=== PATIENT | male | born 1985 | race Caucasian/White ===

== ENCOUNTER 2024-10-08 21:48 | Emergency (ER) | payer MEDICAID, SELFPAY ==
[2024-10-08 22:36] VITALS: BP 104/66; PULSE 87; RESP 18; TEMP 36.8; O2SAT 98
[2024-10-08 22:36] LABS: Basophils % 0.2 %; Eosinophils # 0.2 10^3/uL (0.0-0.8); Eosinophils % 2.1 %; Hematocrit 42.2 % (37-53); Lymphocytes # 1.5 10^3/uL (0.8-4.8); Lymphocytes % 17.7 %; Mean Corpuscular HGB Conc 32.7 g/dL (30-55); Mean Corpuscular Hemoglobin 29.4 pg (27-33); Mean Platelet Volume 10.5 fL (7.4-10.4); Monocytes # 0.7 10^3/uL (0.2-0.9); Monocytes % 8.3 %; Neutrophils # 5.77 10^3/uL (1.8-7.7); Neutrophils % 70.6 %; Nucleated Red Blood Cells % 0 %; Platelet Count 245 10^3/cmm (157-399); Red Blood Count 4.69 10^6/uL (3.85-5.65); Red Cell Distribution Width 13.1 % (12.1-15.1); White Blood Count 8.18 10^3/uL (3.29-11.43)
--- NOTE | 2024-10-08 22:56 | CTR_ITS ---
PROCEDURE INFORMATION: Exam: CT Head Without Contrast Exam date and time: 10/08/2024 11:11 PM Age: 39 years old Clinical indication: Weakness, extremity; Left; Additional info: Falls, unk head injury, left leg numb TECHNIQUE: Imaging protocol: Computed tomography of the head without contrast. Radiation optimization: All CT scans at this facility use at least one of these dose optimization techniques: automated exposure control; mA and/or kV adjustment per patient size (includes targeted exams where dose is matched to clinical indication); or iterative reconstruction. COMPARISON: No relevant prior studies available. RADIATION DOSE METRICS: Total DLP (mGy-cm): 1310.38 FINDINGS: Brain: Normal. No hemorrhage. Unremarkable white matter. No mass effect. Cerebral ventricles: No ventriculomegaly. Paranasal sinuses: Patchy consolidation paranasal sinuses most particularly left frontal sinus. Mastoid air cells: Visualized mastoid air cells are well aerated. Bones: Unremarkable. No acute fracture. Soft tissues: Unremarkable. CT/CT head wo con* [id number] IMPRESSION: Inflammatory change paranasal sinuses without acute traumatic injury seen. No acute infarction appreciated.
--- NOTE | 2024-10-08 22:57 | ED_ITS ---
HPI - General Adult 2 General: Chief complaint: General Medical Stated complaint: fall, high bs Time Seen by Provider: 10/08/24 22:46 Source: RN notes reviewed Mode of arrival: EMS Limitations: physical limitation History of Present Illness: Patient is a 39-year-old male who presents emergency department by ambulance for a couple of falls today. Patient was sent by [facility] due to 2 falls today, first 1 was unwitnessed and the second 1 was witnessed. Reportedly fell on his back the first time, then fell onto his stomach the second. They also noted that his blood pressure was running low. Patient does not provide any useful history, he has extensive psychiatric history and is schizophrenic. He tells me during exam that he just wants his left lower extremity cut off because it is numb and he cannot feel it. Also was stating that his heart hurts. Stating he is having some low back pain from the fall, otherwise no symptoms though review of systems ultimately unobtainable secondary to his physical imitations. MD complaint: Falls, hypertension Review of Systems 2 General: Reports: ROS unobtainable due to medical condition Physical Exam 2 Const: EXAM LIMITATIONS: physical limitations GENERAL APPEARANCE: d isheveled and lethargic NUTRITIONAL APPEARANCE: obese morbidly obese O RIENTATION/CONSCIOUSNESS: Yes awake and Yes lethargic HENMT: COMMON NORMALS: normocephalic and atraumatic HEAD & SCALP: n ormocephalic and atraumatic OTHER: Dry oral mucosa, poor dentition Eye: COMMON NORMALS: Equal, round and reactive pupils present (Sluggish) and EOMs intact bilaterally PUPIL: Yes Equal, round and reactive pupils present (Sluggish) Neck/C-Spine: COMMON NORMALS: full ROM, no meningeal signs and no JVD Chest: COMMONS NORMALS: normal inspection of the chest and normal palpation of entire chest wall Resp: COMMON NORMALS: normal respiratory effort, No retractions, No use of accessory muscles and clear to auscultation bilaterally AUSCULTATION: clear to auscultation bilaterally Cardio: COMMON NORMALS: no JVD, regular rate, regular rhythm, S1 normal heart sound present and S2 normal heart sound present RATE: regular rate RHYTHM: regular rhythm HEART SOUNDS: S1 normal heart sound present and S2 normal heart sound present GI: COMMON NORMALS: Soft to palpation and non-tender INSPECTION: Yes central obesity PALPATION: Yes Soft to palpation Extremity: COMMON NORMALS: full ROM, capillary refill normal, no joint enlargement and no clubbing, cyanosis or edema NARRATIVE EXTREMITY EXAM: Nonpitting peripheral edema bilaterally Neuro: COMMON NORMALS: deep tendon reflexes 2+ bilaterally S ENSORIUM/ORIENTATION: Yes lethargic MENINGEAL SIGNS: Yes no meningeal signs OTHER: Indicating diminished sensation to light touch to left lower extremity. Also refuses movement of the left lower extremity though I suspect this is secondary to mental capacity as opposed to neurological deficit Skin: COMMON NORMALS: no rashes or lesions noted GENERAL SKIN EXAM: no rashes or lesions noted Course 2 Vital Signs: Vital signs: Vital Signs Temperature 98.3 F 10/08/24 22:36 Pulse Rate 83 10/09/24 00:15 Respiratory Rate 15 10/08/24 23:52 Blood Pressure 132/82 10/09/24 00:15 Pulse Oximetry 98 10/08/24 23:52 Oxygen Delivery Me thod Room Air 10/08/24 23:52 MDM - General Adult Medical Decision Making Patient was [facility] was reportedly hypotensive there. Initially on arrival here was 104/66 but blood pressure has improved into the 130s systolic. Orthostatic vital signs were negative. Lab work was all completely normal. Negative urinalysis and negative viral swab. Head CT did not demonstrate any acute abnormalities and chest x-ray did not show any acute abnormalities. EKG reviewed did not show any issues here. Patient does have extensive history of psychiatric illness and mental history, ultimately was unreliable historian. I did attempt to contact staff at the [facility] but was unable to get a hold of them throughout the course of patient's ED stay. With no abnormalities on labs, vitals, or imaging can ultimately be discharged back to [facility] for further care and monitoring. Lab Data 10/08/24 22:29 10/08/24 22:[address] 10/08/24 22:56 IMPRESSION: Inflammatory change paranasal sinuses without acute traumatic injury seen. No acute infarction appreciated. Chest X-Ray 10/08/24 22:57 IMPRESSION: Cardiomegaly. No additional acute finding. Laboratory Results WBC 8.18 10^3/uL (3.29-11.43) 10/08/24 22:29 RBC 4.69 10^6/uL (3.85-5.65) 10/08/24 22: Hgb 13.80 g/dL (11.27-16.99) 10/08/24: Hct 42.2 % (37-53) 10/08/24: MCV 90.0 fl (82-101) 10/08/24: MCH 29.4 pg (27-33) 10/08/24: MCHC 32.7 g/dL (30-55) 10/08/24: RDW 13.1 % (12.1-15.1) 10/08/24: Plt Count 245 10^3/cmm (157-399) 10/08/24: MPV 10.5 fL (7.4-10.4) H 10/08/24: Neut % (Auto) 70.6 % 10/08/24: Lymph % (Auto) 17.7 % 10/08/24: [place] % (Auto) 8.3 % 10/08/24: Eos % (Auto) 2.1 % 10/08/24: Baso % (Auto) 0.2 % 10/08/24: Neut # (Auto) 5.77 10^3/uL (1.8-7.7) 10/08/24: Lymph # (Auto) 1.5 10^3/uL (0.8-4.8) 10/08/24: [place] # (Auto) 0.7 10^3/uL (0.2-0.9) 10/08/24: Eos # (Auto) 0.2 10^3/uL (0.0-0.8) 10/08/24: Baso # (Auto) 0.0 10^3/uL (0.0-0.1) 10/08/24: Nucleated RBC % (auto) 0 % 10/08/24 Nucleated RBCs # 0.0 /100WBC 10/08/24: Sodium 139 mmol/L (136-145) 10/08/24: Potassium 3.7 mmol/L (3.5-5.1) 10/08/24: Chloride 107 mmol/L (98-107) 10/08/24 22:29 Carbon Dioxide 18 mmol/L (22-29) L 10/08/24 22:29 Anion Gap 17.7 (5-19) 10/08/24 22:29 BUN 10 mg/dL (6-20) 10/08/24 22:29 Creatinine 0.7 mg/dL (0.7-1.2) 10/08/24 22:29 GFR Calculation 126.9 mL/min (90-130) 10/08/24 22: Glucose 148 mg/dL (65-115) H 10/08/24 22: Calculated Osmolality 290 mOsm/kg (285-295) 10/08/24 22: Calcium 9.2 mg/dL (8.5-10.5) 10/08/24 22: Total Bilirubin 0.2 mg/dL (0.15-1.2) 10/08/24 22:29 AST 11 U/L (0-40) 10/08/24 22:29 ALT 21 U/L (0-41) 10/08/24 22:29 Alkaline Phosphatase 80 U/L (40-130) 10/08/24 22:29 Troponin T Baseline 9 ng/L (0-15) 10/08/24 22:29 Total Protein 6.9 g/dL (6.6-8.7) 10/08/24 22:29 Albumin 4.1 g/dL (3.5-5.2) 10/08/24 22: Globulin 2.8 g/dL (1.3-4.6) 10/08/24 22: Lipase 28 U/L (13-60) 10/08/24 22:29 Urine Color Yellow (Yellow) 10/09/24 00:14 Urine Appearance Clear (CLEAR) 10/09/24 00:14 Urine pH 6.5 (5-7) 10/09/24 00:14 Ur Specific [place] 1.020 (1.005-1.030) 10/09/24 00:14 Urine Protein Negative (Negative) 10/09/24 00:14 Urine Glucose (UA) Negative (Normal) 10/09/24 00:14 Urine Ketones Negative (Negative) 10/09/24 00:14 Urine Blood Negative (Negative) 10/09/24 00:14 Urine Nitrate Negative (Negative) 10/09/24 00:14 Urine Bilirubin Negative (Negative) 10/09/24 00:14 Urine Urobilinogen 0.2 mg/dL (Negative) 10/09/24 00:14 Ur Leukocyte Esterase Negative (Negative) 10/09/24 00:14 Amorphous Sediment Not Reportable 10/09/24 00:14 Influenza A (PCR) Negative (Negative) 10/08/24 23:37 Influenza Type B (PCR) Negative (Negative) 10/08/24 23:37 RSV (PCR) Negative (Negative) 10/08/24 23:37 SARS-CoV-2 (PCR) Negative (Negative) 10/08/24 23:37 All radiology interpretation(s) finalized by discharge EKG Data EKG 1: I personally reviewed and interpreted this EKG as follows: EKG interpretation date: 10/09/24 EKG interpretation time: 00:25 Prior EKG tracings: not available for review Interpretation: 0025: Normal sinus rhythm. Normal axis. Normal intervals. No STEMI. No previous for comparison. Computer generated interpretation: Head CT 10/08/24 22:56 IMPRESSION: Inflammatory change paranasal sinuses without acute traumatic injury seen. No acute infarction appreciated. Chest X-Ray 10/08/24 22:57 IMPRESSION: Cardiomegaly. No additional acute finding. Discharge Plan Discharge Patient Disposition: Home Clinical Impression: Fall Qualifiers: Encounter type: initial encounter Qualified Code(s): W19.XXXA - Unspecified fall, initial encounter Low back strain Qualifiers: Encounter type: initial encounter Qualified Code(s): S39.012A - Strain of muscle, fascia and tendon of lower back, initial encounter Condition: Stable Discharge Orders: Discharge ED (Routine); Ordered 10/09/24 Ordered By: Konstantin Leon Referrals: Jermaine Gerardo [Primary Care Provider] - Patient Instructions: Fall Prevention (ED) Activity Restrictions/Additional Instructions: Continue monitoring blood pressures at home. Continue home medications. Ibuprofen/Tylenol for aches and pains. Return with any new or worsening. Print Language: French Coding Level of Care Code ED Jalousies Installer for Romana Chapman
--- NOTE | 2024-10-08 22:57 | ECG_ITS ---
[facility] Date: 2024-[facility]09 Pat Name: Shahid Atwood Department: Room: Gender: Male Md Psychiatry: : 1985 Requested By: Konstantin Duong Order Number: [id number] Cornelio MD: Aris Burns M.D. Measurements Intervals Fine Rate: 82 P: 52 [place]: 156 QRS: 10 QRSD: 96 T: 30 QT: 368 QTc: 432 Interpretive Statements SINUS RHYTHM LOW QRS VOLTAGE IN PRECORDIAL LEADS [QRS DEFLECTION < 1.0 mV IN CHEST LEADS] No previous ECG available for comparison Electronically Signed On 10-13-2024 18:13:34 MELT HOUSE DRAG OPERATOR by Aris Burns M.D. [email or web address]
--- NOTE | 2024-10-08 22:57 | XRR_ITS ---
PROCEDURE INFORMATION: Exam: XR Chest Exam date and time: 10/08/2024 10:59 PM Age: 39 years old Clinical indication: Other: Weakness; Additional info: Weak, falls TECHNIQUE: Imaging protocol: Radiologic exam of the chest. Views: 1 view. COMPARISON: No relevant prior studies available. FINDINGS: Lungs: Unremarkable. No consolidation. Pleural spaces: Unremarkable. No pleural effusion. No pneumothorax. Heart/Mediastinum: Cardiomegaly. Bones/joints: Unremarkable. XR/XR chest 1V portable [id number] IMPRESSION: Cardiomegaly. No additional acute finding.
[2024-10-08 22:58] LABS: Alanine Aminotransferase 21 U/L (0-41); Albumin Level 4.1 g/dL (3.5-5.2); Alkaline Phosphatase 80 U/L (40-130); Anion Gap 17.7 (5-19); Aspartate Amino Transferase 11 U/L (0-40); Blood Urea Nitrogen 10 mg/dL (6-20); Calcium 9.2 mg/dL (8.5-10.5); Carbon Dioxide 18 mmol/L (22-29); Chloride 107 mmol/L (98-107); Globulin 2.8 g/dL (1.3-4.6); Glomerular Filtration Rate 126.9 mL/min (90-130); Glucose 148 mg/dL (65-115); Lipase 28 U/L (13-60); Osmolality Calculated 290 mOsm/kg (285-295); Potassium 3.7 mmol/L (3.5-5.1); Sodium 139 mmol/L (136-145); Total Bilirubin 0.2 mg/dL (0.15-1.2); Total Protein 6.9 g/dL (6.6-8.7)
[2024-10-08 23:14] LABS: Troponin(5th) Baseline 9 ng/L (0-15)
[2024-10-08 23:52] VITALS: BP 130/71; PULSE 80; RESP 15; O2SAT 98
[2024-10-08] MEDS: sodium chloride 0.9% 1,000 ML 999 ML IV (23:55)
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
[2024-10-09 00:15] VITALS: BP 132/82; BP 135/98; PULSE 83; PULSE 95
[2024-10-09 00:20] LABS: Influenza A NEGATIVE (Negative); Influenza B NEGATIVE (Negative); Respiratory Syncytial Virus Ce NEGATIVE (Negative); SARS-CoV-2 PCR NEGATIVE (Negative)
[2024-10-09 00:26] LABS: Add Urine Microscopic? NO
[2024-10-09 00:29] LABS: Bilirubin Urine Negative (Negative); Blood Urine Negative (Negative); Glucose Urine UA Negative (Normal); Ketones Urine Negative (Negative); Leukocyte Esterase Urine Negative (Negative); Nitrate Urine Negative (Negative); Protein Urine Negative (Negative); Urine Appearance Clear (CLEAR); Urine Color Yellow (Yellow); Urobilinogen Urine 0.2 mg/dL (Negative); pH Urine 6.5 (5-7)
[2024-10-09 00:49] LABS: Charge for UA Resulting for Rev
--- NOTE | 2024-10-09 00:50 | ECG_ITS ---
[facility] Test Date: 2024-10-09 Pat Name: Shahid Atwood Department: Room: Gender: Male Senior Hris Analyst: : 1985 Requested By: Konstantin Duong Order Number: [id number] Cornelio MD: Aris Burns M.D. Measurements Intervals [place] Rate: 92 P: 64 [place]: 145 QRS: 18 QRSD: 92 T: 53 QT: 359 QTc: 445 Interpretive Statements SINUS RHYTHM LOW QRS VOLTAGE IN PRECORDIAL LEADS [QRS DEFLECTION < 1.0 mV IN CHEST LEADS] Compared to ECG 10/09/2024 00:23:04 No significant changes Electronically Signed On 10-13-2024 19:47:18 ARTIST CONSULTANT by Aris Bruns M.D. [id number] [id number]
[2024-10-09 02:30] VITALS: BP 129/73; PULSE 87; RESP 18; O2SAT 92
== END 2024-10-09 02:32 | disposition home or self-care (01) ==
PROVIDERS: Emergency Medicine; Emergency Provider Physician Assistant; PCP Student in an Organized Health Care Education/Training Program
DX: S39.012A Strain of muscle, fascia and tendon of lower back, initial encounter (principal); W19.XXXA Unspecified fall, initial encounter; Z11.52 Encounter for screening for COVID-19
CPT/HCPCS: 36415; 70450; 71045; 72020; 73502; 80053; 81003; 83690; 84484; 85025; 87637; 93005; 96360; 96361; 99285; J7030

== ENCOUNTER 2025-06-27 13:23 | Emergency (ER) | payer MEDICAID, SELFPAY ==
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
--- OUTSIDE RECORDS SUMMARY | 2024-02-08 04:30 | XMS_ITS ---
Author Organization [facility] Address [address] [place] [address] Care Team Providers Care Diet Assistant Name Role Phone DR. Ramón Capellan Unavailable [phone] REASON FOR VISIT 1 month f/u Medications Medication SIG (Take, Route, Frequency, Duration) Notes Start Date End Date Status Albuterol Sulfate HFA 108 (9 0 Base) MCG/ACT Aerosol Solution 1 puff as needed Inhalation every 4 hrs Active Loperamide HCl 2 MG Tablet 1 tablet as n eeded Orally every 8 hrs 01/23/2024 Active Acetaminophen 500 MG Capsule 2 tablets Orally every 6 hrs As needed 01/23/2024 Active Gabapentin 100 MG Capsule 1 capsule Oral ly three times daily 01/23/2024 Active Primidone 250 MG Tablet 1 tablet Orally Three times a day 01/23/2024 Active Topiramate 100 MG Tablet 1 tablet Orally three times daily 01/23/2024 Active Prazosin HCl 2 MG Capsule 1 capsule at b edtime Orally Once a day Active amLODIPine Besylate 10 MG Tablet 1 tablet Orally Once a day Active cloZAPine 100 MG Tablet 3 tablets Orally at bedtime 01/23/2024 Active Propranolol HCl 20 MG Tablet 1 tablet Orally daily 01/23/2024 Active Uzedy 125 MG/0.35ML Suspension Prefilled Syringe 0.35 mL Subcutaneous Active cloNIDine HCl 0.1 MG Tablet 1 tablet Ora lly three times a day Active Vitamin D3 125 MCG (5000 UT) Capsule 1 capsule Orally Once a day Active Keppra 500 MG Tablet 1 tablet Orally samantha ry 12 hrs Active clonazePAM 1 MG Tablet 1 tablet Orally t hree times daily 01/23/2024 Active medroxyPROGESTERone Acetate 150 MG/ML Suspension 1 mL Intramuscular one time every 3 months Active Levothyroxine Sodium 75 MCG Tablet 1 tablet in the morning on an empty stomach Orally Once a day Active Omeprazole 20 MG Capsule Delayed Release 1 capsule 30 minutes before morning meal Orally Once a day Active Vital Signs Temperature 97.9 degrees Fahrenheit 02/08/20 24 Blood pressure systolic 142 mm Hg 02/08/20 24 Blood pressure diastolic 91 mm Hg 024 Heart Rate 67 /min 02/08/2024 Respiratory Rate 21 /min 02/08/2024 Height 68 in 02/08/2024 Weight 347.6 lbs 02/08/2024 BMI 52.85 kg/m2 02/08/2024 Oximetry 98 % 02/08/2024 Height-cm 172.72 cm 02/08/2024 Weight-kg 157.67 kg 02/08/2024 Encounters Encounter Location Date Provider Diagnosis [facility] DO NOT USE! [address] [place], [place] [id number] 02/08/2024 Ramón Capellan Hypothyroidism, unspecified E03.9 ; GERD without esophagitis K21.9 ; Morbid obesity E66.01 and Bipolar 1 disorder F31.9 Assessments Encounter Date Diagnosis (ICD Code) Assessment Notes Treatment Notes Treatment Clinical Notes Section Notes 02/08/2024 Hypothyroidism, unspecified (ICD-10 - E03.9) 02/08/2024 GERD without esophagitis (ICD-10 - K21.9) Encouraged patient to limit/avoid spicy foods, caffeine and alcohol. Discussed avoid eating 4 hours prior to bed, sleep with head of bed elevated. Discussed over the counter medications antacids, anti histamine and proton pump inhibitors. 02/08/2024 Morbid obesity (ICD-10 - E66.01) 02/08/2024 Bipolar 1 disorder (ICD-10 - F31.9) Plan Of Treatment Treatment Notes Assessment Notes GERD without esophagitis Encouraged ayad ent to limit/avoid spicy foods, caffeine and alcohol. Discussed avoid eating 4 hours prior to bed, sleep with head of bed elevated. Discussed over the counter medications antacids, anti histamine and proton pump inhibitors. Next Appt Details Follow Up: 4 Weeks, Reason: History and Physical Notes * HPI (History of Present Illness) Category Sub-Category Detail Notes Category Not es History of Present Illness 38 year old male resident is evaluated for a follow up visit. He is in his room and in no acute distress. He is compliant with medication regimen. He has no new medical concerns today. He has cognitive impairment. Examination Category Sub-Category Detail Notes Category Not es Physical Exam SPC General: no acute distress. Morb id obesity. Ear, Nose, and Throat: No erythema poste rior Pharynx, tympanic membrane normal Neck/Thyroid: neck supple, no thyr oid enlargement noticed Cardiac: regular, rate and rh ythm, S1/S2 Lung: clear to auscultatio n bilaterally Abdomen: soft, non tender, no n distended, bowel sound present X4Q Musculoskeletal unsteady gait. muscl e weakness. Extremities: pulse +2. decreased range of motion in limbs. Neurologic: cognitive impairment . Skin: Progress Notes * ROLANDA STARKEYWDOB: 8 (39 yo M)Acc No.[id number]:02/08/2024 Progress Note Patient: GENE MCKAY Provider: Justina Capellan MD :1985 A ge:38 Y S ex:Male Date:02/08/2024 Phone: Address:[address] [facility] [id number] Subjective: * Chief Complaints: * 1 month f/u * HPI: H istory of Present Illness: 38 year old male resident is evaluated for a follow up visit. He is in his room and in no acute distress. He is compliant with medication regimen. He has no new medical concerns today. He has cognitive impairment. * ROS: G eneral: - A lert and oriented to self. Ambulatory by self with an unsteady gait. morbid obesity. cognitive impairment. . G astrointestinal: Patient complains of G ERD. M usculoskeletal: Patient complains of j oint stiffness, muscle aches. ? P sychiatric: Patient complains of a nxiety, depressed mood. ? * Medications: T akingmedroxyPROGESTERone Acetate 150 MG/ML Suspension 1 mL Intramuscular one time every 3 months Uzedy 125 MG/0.35ML Suspension Prefilled Syringe 0.35 mL Subcutaneous cloNIDine HCl 0.1 MG Tablet 1 tablet Orally three times a day Vitamin D3 125 MCG (5000 UT) Capsule 1 capsule Orally Once a day Keppra 500 MG Tablet 1 tablet Orally every 12 hrs clonazePAM 1 MG Tablet 1 tablet Orally three times daily Topiramate 100 MG Tablet 1 tablet Orally three times daily Prazosin HCl 2 MG Capsule 1 capsule at bedtime Orally Once a day amLODIPine Besylate 10 MG Tablet 1 tablet Orally Once a day cloZAPine 100 MG Tablet 3 tablets Orally at bedtime Propranolol HCl 20 MG Tablet 1 tablet Orally daily Albuterol Sulfate HFA 108 (90 Base) MCG/ACT Aerosol Solution 1 puff as needed Inhalation every 4 hrs Loperamide HCl 2 MG Tablet 1 tablet as needed Orally every 8 hrs Acetaminophen 500 MG Capsule 2 tablets Orally every 6 hrs As neededGabapentin 100 MG Capsule 1 capsule Orally three times daily Primidone 250 MG Tablet 1 tablet Orally Three times a day Levothyroxine Sodium 75 MCG Tablet 1 tablet in the morning on an empty stomach Orally Once a day Omeprazole 20 MG Capsule Delayed Release 1 capsule 30 minutes before morning meal Orally Once a day Taking medroxyPROGESTERone Acetate 150 MG/ML Suspension 1 mL Intramuscular one time every 3 months Taking Uzedy 125 MG/0.35ML Suspension Prefilled Syringe 0.35 mL Subcutaneous Taking cloNIDine HCl 0.1 MG Tablet 1 tablet Orally three times a day Taking Vitamin D3 125 MCG (5000 UT) Capsule 1 capsule Orally Once a day Taking Keppra 500 MG Tablet 1 tablet Orally every 12 hrs Taking clonazePAM 1 MG Tablet 1 tablet Orally three times daily Taking Topiramate 100 MG Tablet 1 tablet Orally three times daily Taking Prazosin HCl 2 MG Capsule 1 capsule at bedtime Orally Once a day Taking amLODIPine Besylate 10 MG Tablet 1 tablet Orally Once a day Taking cloZAPine 100 MG Tablet 3 tablets Orally at bedtime Taking Propranolol HCl 20 MG Tablet 1 tablet Orally daily Taking Albuterol Sulfate HFA 108 (90 Base) MCG/ACT Aerosol Solution 1 puff as needed Inhalation every 4 hrs Taking Loperamide HCl 2 MG Tablet 1 tablet as needed Orally every 8 hrs Taking Acetaminophen 500 MG Capsule 2 tablets Orally every 6 hrs As neededTaking Gabapentin 100 MG Capsule 1 capsule Orally three times daily Taking Primidone 250 MG Tablet 1 tablet Orally Three times a day Taking Levothyroxine Sodium 75 MCG Tablet 1 tablet in the morning on an empty stomach Orally Once a day Taking Omeprazole 20 MG Capsule Delayed Release 1 capsule 30 minutes before morning meal Orally Once a day Objective: * Vitals: H t: 68 in, Wt:347.6lbs, BMI:52.85Index, BP:142/91mm Hg, HR:67/min, RR:21/min, Temp:97.9F, Oxygen sat %:98%, Wt-k.67 kg, Ht-cm: 172.72 cm, Body Surface Area: 2.75. * Examination: P hysical Exam SPC: General: n o acute distress. Morbid obesity. Ear, Nose, and Throat: N o erythema posterior Pharynx, tympanic membrane normal. Neck/Thyroid: n rebeca supple, no thyroid enlargement noticed.? Cardiac: r egular, rate and rhythm, S1/S2. Lung: c lear to auscultation bilaterally. Abdomen: s oft, non tender, non distended, bowel sound present X4Q. Musculoskeletal u nsteady gait. muscle weakness. Extremities: p ulse +2. decreased range of motion in limbs.? Neurologic: c ognitive impairment. Assessment: * Assessment: 1. H ypothyroidism, unspecified - E03.9 (Primary) 2 . G ERD without esophagitis - K21.9 3 . M orbid obesity - E66.01 4 . B ipolar 1 disorder - F31.9 Plan: * Treatment: * Follow Up: 4 Weeks Billing Information: * Visit Code: 90370 NURSING FAC CARE SUBSEQ. * Procedure Codes: * Electronic signature of DR. Ramón Capellan MD on 06/27/2025 at 04:04 PM MANAGER BEVERAGE Sign off status: Pending * Provider: Justina Capellan MD Date: 0 02/08/2024 Generated for Robbie partida/Tesha/Sylitting on: 1 08/27/2024 04:04 PM MANAGER BEVERAGE
[2025-06-27 13:28] VITALS: BP 140/82; PULSE 93; RESP 18; TEMP 36.4; O2SAT 96
--- NOTE | 2025-06-27 13:31 | W.ED.GENADLT ---
HPI - General Adult General: Chief complaint: Psychiatric Symptoms Stated complaint: agitation Time Seen by Provider: 06/27/25 13:24 Source: patient and EMS Mode of arrival: EMS Limitations: no limitations History of Present Illness: 39-year-old male is here from the care home has history of bipolar along with schizophrenia some mental handicap as well. Per EMS patient was wanting to smoke today and the nursing would not let him go outside due to it raining he became agitated. Patient here has been calm and cooperative. He states that he was just upset that he could not smoke he denies being suicidal or homicidal and does want to go back to the care home. Related Data Home Medications ?Medication ?Instructions ?Recorded ?Confirmed acetaminophen 500 mg tablet 1,000 mg PO Q6H PRN pain/temp 06/27/25 06/27/25 albuterol sulfate 90 mcg/actuation 2 puff inhalation Q4H PRN 06/27/25 06/27/25 aerosol inhaler (Ventolin HFA) Shortness Of Breath amlodipine 10 mg tablet 10 mg PO DAILY 06/27/25 06/27/25 bisacodyl 10 mg rectal suppository [address] DAILY PRN Constipation 06/27/25 06/27/25 bumetanide 1 mg tablet 1 mg PO BID 06/27/25 06/27/25 calcium carbonate 1,000 mg PO Q6H PRN Indigestion 06/27/25 06/27/25 cholecalciferol (vitamin D3) 25 25 mcg PO DAILY 06/27/25 06/27/25 mcg (1,000 unit) tablet clonazepam 1 mg tablet 0.5 mg PO TID 06/27/25 06/27/25 clonidine HCl 0.1 mg tablet 0.1 mg PO Q8H PRN Hypertension 06/27/25 06/27/25 clozapine 100 mg tablet 300 mg PO BEDTIME 06/27/25 06/27/25 dextran 70-hypromellose eye drops 1 drp ophthalmic (eye) BID 06/27/25 06/27/25 in a dropperette (Artificial Tears (PF) drops in a dropperette) divalproex 500 mg tablet,delayed 1,000 mg PO TID 06/27/25 06/27/25 release furosemide 20 mg tablet 20 mg PO DAILY 06/27/25 06/27/25 gabapentin 100 mg capsule 100 mg PO TID 06/27/25 06/27/25 guaifenesin 100 mg/5 mL oral liquid 200 mg PO Q4H PRN cough/allergy 06/27/25 06/27/25 hydroxyzine HCl 25 mg tablet 25 mg PO BID 06/27/25 06/27/25 ibuprofen 600 mg tablet 600 mg PO BID 06/27/25 06/27/25 lactulose 10 gram/15 mL oral 30 ml PO Q12H PRN Constipation 06/27/25 06/27/25 solution levetiracetam 1,000 mg tablet 1,000 mg PO BID 06/27/25 06/27/25 levothyroxine 75 mcg tablet 75 mcg PO DAILY 06/27/25 06/27/25 loperamide 2 mg-simethicone 125 mg See Rx Instructions .Route 06/27/25 06/27/25 tablet .COMPLEX PRN Diarrhea magnesium hydroxide 400 mg/5 mL 30 ml PO DAILY PRN Constipation 06/27/25 06/27/25 oral suspension (Milk of Magnesia) nystatin 100,000 unit/gram topical See Rx Instructions .Route 06/27/25 06/27/25 powder (Nystop) .COMPLEX PRN Skin Irritation omeprazole 20 mg capsule,delayed 20 mg PO DAILY 06/27/25 06/27/25 release ondansetron HCl 4 mg tablet 4 mg PO Q6H PRN Nausea And Vomiting 06/27/25 06/27/25 polyethylene glycol 3350 17 17 g PO DAILY PRN Constipation 06/27/25 06/27/25 gram/dose oral powder (Miralax) potassium chloride 20 mEq 20 meq PO DAILY 06/27/25 06/27/25 tablet,extended release(part/cryst) prazosin 2 mg capsule 2 mg PO BEDTIME PRN Hypertension 06/27/25 06/27/25 primidone 250 mg tablet 250 mg PO TID 06/27/25 06/27/25 promethazine 25 mg tablet 25 mg PO Q30D 06/27/25 06/27/25 propranolol 20 mg tablet 20 mg PO DAILY 06/27/25 06/27/25 risperidone 125 mg/0.35 mL 125 mg SUBCUT DAILY 06/27/25 06/27/25 subcutaneous extend release susp syringe (Uzedy) spironolactone 25 mg tablet 25 mg PO DAILY 06/27/25 06/27/25 topiramate 100 mg tablet 100 mg PO TID 06/27/25 06/27/25 Allergies Allergy/AdvReac Type Severity Reaction Status Date / Time quetiapine (From Seroquel) Allergy Unknown Verified 06/27/25 13:35 Physical Exam Const: COMMON NORMALS: no acute distress, patient oriented x3 and healthy appearing HENMT: COMMON NORMALS: normocephalic and atraumatic HEAD & SCALP: normocephalic and atraumatic Neck/C-Spine: COMMON NORMALS: full ROM and supple Chest: COMMONS NORMALS: normal inspection of the chest and normal palpation of entire chest wall Resp: COMMON NORMALS: normal respiratory effort, No retractions, No use of accessory muscles and clear to auscultation bilaterally AUSCULTATION: clear to auscultation bilaterally Cardio: COMMON NORMALS: regular rate, regular rhythm and No murmurs present (Cardio) RATE: regular rate RHYTHM: regular rhythm GI: COMMON NORMALS: Normal to inspection, nondistended, normoactive bowel sounds present, Soft to palpation, non-tender and no masses PALPATION: Yes Soft to palpation Extremity: COMMON NORMALS: normal to inspection and full ROM Neuro: COMMON NORMALS: patient oriented x3, moves all extremities and no focal motor deficits Psych: COMMON NORMALS: mental status grossly normal, Normal thought process present and cooperative THOUGHT PROCESS: Normal thought process present Skin: COMMON NORMALS: no rashes or lesions noted and no wounds GENERAL SKIN EXAM: no rashes or lesions noted Course Vital Signs: Vital signs: Vital Signs Temperature 97.6 F 06/27/25 13:28 Pulse Rate 93 06/27/25 13:28 Respiratory Rate 18 06/27/25 13:28 Blood Pressure 140/82 06/27/25 13:28 Pulse Oximetry 96 06/27/25 13:28 Oxygen Delivery Me thod Room Air 06/27/25 13:28 MDM - General Adult Medical Decision Making Patient presents here with a period of agitation from the care home not being able to smoke. Patient's been calm cooperative here is not suicidal not homicidal no longer agitated. I did speak to my psychiatrist Dr. Craft who agrees patient does not require inpatient treatment at this time. Will discharge back to the care home. No radiology studies performed this visit Discharge Plan Discharge Patient Disposition: Home Clinical Impression: Agitation, Bipolar 1 disorder Condition: Stable Prescriptions: No Action clonidine HCl 0.1 mg Tablet 0.1 mg PO Q8H PRN (Reason: Hypertension) clozapine 100 mg tablet 300 mg PO BEDTIME ondansetron HCl 4 mg tablet 4 mg PO Q6H PRN (Reason: Nausea And Vomiting) clonazepam 1 mg tablet 0.5 mg PO TID divalproex 500 mg tablet,delayed release (DR/EC) 1,000 mg PO TID acetaminophen 500 mg Tablet 1,000 mg PO Q6H PRN (Reason: pain/temp) guaifenesin 100 mg/5 mL Liquid 200 mg PO Q4H PRN (Reason: cough/allergy) spironolactone 25 mg tablet 25 mg PO DAILY levothyroxine 75 mcg tablet 75 mcg PO DAILY potassium chloride 20 mEq tablet,ER particles/crystals 20 meq PO DAILY primidone 250 mg tablet 250 mg PO TID magnesium hydroxide [Milk of Magnesia] 400 mg/5 mL Suspension 30 ml PO DAILY PRN (Reason: Constipation) amlodipine 10 mg tablet 10 mg PO DAILY bisacodyl 10 mg Suppository [address] DAILY PRN (Reason: Constipation) promethazine 25 mg tablet 25 mg PO Q30D omeprazole 20 mg capsule,delayed release(DR/EC) 20 mg PO DAILY bumetanide 1 mg tablet 1 mg PO BID hydroxyzine HCl 25 mg tablet 25 mg PO BID calcium carbonate [Tums 500] 500 mg calcium (1,250 mg) Tablet,Chewable 1,000 mg PO Q6H PRN (Reason: Indigestion) furosemide 20 mg tablet 20 mg PO DAILY loperamide-simethicone [Imodium Advanced] 2-125 mg Tablet See Rx Instructions .ROUTE .COMPLEX PRN (Reason: Diarrhea) Rx Instructions: Give 2 tablets by mouth for the first loose stool and 1 tablet for each stool afterward as needed. Do not exceed 6 tablets in 24 hrs gabapentin 100 mg capsule 100 mg PO TID nystatin [Nystop] 100,000 unit/gram powder See Rx Instructions .ROUTE .COMPLEX PRN (Reason: Skin Irritation) Rx Instructions: Apply to abdominal folds topically twice daily as needed for skin integrity ibuprofen 600 mg Tablet 600 mg PO BID polyethylene glycol 3350 [Miralax] 17 gram/dose Powder 17 g PO DAILY PRN (Reason: Constipation) albuterol sulfate [Ventolin HFA] 90 mcg/actuation HFA aerosol inhaler 2 puff INHALATION Q4H PRN (Reason: Shortness Of Breath) propranolol 20 mg tablet 20 mg PO DAILY topiramate 100 mg tablet 100 mg PO TID prazosin 2 mg capsule 2 mg PO BEDTIME PRN (Reason: Hypertension) Artificial Tears (PF) Dropperette 1 drp OPHTHALMIC (EYE) BID lactulose 10 gram/15 mL solution 30 ml PO Q12H PRN (Reason: Constipation) levetiracetam 1,000 mg tablet 1,000 mg PO BID cholecalciferol (vitamin D3) 25 mcg (1,000 unit) Tablet 25 mcg PO DAILY Uzedy 125 mg/0.35 mL suspension,extended rel syring 125 mg SUBCUT DAILY Discharge Orders: Discharge ED (Routine); Ordered 06/27/25 Ordered By: Maria Del Rosario Castelan Referrals: Jermaine Gerardo [Primary Care Provider, Internal Medicine] - 4-7 days Discharge Diet: Advance as tolerated Discharge Activity: Resume usual activity Patient Instructions: Schizophrenia (ED) Print Language: Spanish Coding Level of Care Code ED [employer] for Romnaa Chapman
--- NOTE | 2025-06-27 14:37 | PC.PHAR ---
pt is from [facility]
--- OUTSIDE RECORDS SUMMARY | 2025-06-27 16:04 | XMS_ITS | Patient Health Record ---
Author Organization [facility] Address [address] [place] [address] Care Team Providers Care Energy Conservation Director Name Role Phone DR. Ramón Capellan Unavailable Allergies Allergen (clinical drug ingredient) Drug/Non Drug Allergy documented on EMR Reaction Allergy Type Onset Date Status quetiapine SEROquel Unknown Drug Allergy Active carbamazepine TEGretol Unknown Drug Allergy Act nato Reason For Referral No Information Medications Medication SIG (Take, Route, Frequency, Duration) Notes Start Date End Date Status medroxyPROGESTERone Acetate 150 MG/ML Suspension 1 mL Intramuscular one time every 3 months Active Albuterol Sulfate HFA 108 (9 0 Base) MCG/ACT Aerosol Solution 1 puff as needed Inhalation every 4 hrs Active Uzedy 125 MG/0.35ML Suspension Prefilled Syringe 0.35 mL Subcutaneous Active Loperamide HCl 2 MG Tablet 1 tablet as n eeded Orally every 8 hrs 01/23/2024 Active cloNIDine HCl 0.1 MG Tablet 1 tablet Ora lly three times a day Active Acetaminophen 500 MG Capsule 2 tablets Orally every 6 hrs As needed 01/23/2024 Active Vitamin D3 125 MCG (5000 UT) Capsule 1 capsule Orally Once a day Active Gabapentin 100 MG Capsule 1 capsule Oral ly three times daily 01/23/2024 Active Keppra 500 MG Tablet 1 tablet Orally samantha ry 12 hrs Active Primidone 250 MG Tablet 1 tablet Orally Three times a day 01/23/2024 Active clonazePAM 1 MG Tablet 1 tablet Orally t hree times daily 01/23/2024 Active Levothyroxine Sodium 75 MCG Tablet 1 tablet in the morning on an empty stomach Orally Once a day Active Topiramate 100 MG Tablet 1 tablet Orally three times daily 01/23/2024 Active Omeprazole 20 MG Capsule Delayed Release 1 capsule 30 minutes before morning meal Orally Once a day Active Prazosin HCl 2 MG Capsule 1 capsule at b edtime Orally Once a day Active amLODIPine Besylate 10 MG Tablet 1 tablet Orally Once a day Active cloZAPine 100 MG Tablet 3 tablets Orally at bedtime 01/23/2024 Active Propranolol HCl 20 MG Tablet 1 tablet Orally daily 01/23/2024 Active Problems Problem Type SNOMED Code ICD Code Onset Dates Problem Status W/U Status Risk Notes Problem Hypothyroidism (65394320) Hypothyroidism, unspecified (E03.9) Active confirmed Problem 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 confirmed Problem Intermittent explosive disorder (03898552) Intermittent explosive disorder (F63.81) Active confirmed Problem 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) (93192044) Mild intellectual disabilities (F70) Active confirmed Problem Osteoarthritis of knee (535713505) Bilateral primary osteoarthritis of knee (M17.0) Active confirmed Problem Gastroesophageal reflux disease (232656053) GERD without esophagitis (K21.9) Active confirmed Problem Schizoaffective disorder (89728803) Schizo affective schizophrenia (F25.9) Active confirmed Problem Abnormal gait (73466740) Unsteady gait when walking (R26.81) Active confirmed Problem Major depressive disorder, single episode, severe with psychotic features (580665508) Current severe episode of major depressive disorder with psychotic features without prior episode (F32.3) Active confirmed Problem Morbid obesity (738622071) Morbid obesity (E66.01) Active confirmed Problem Bipolar 1 disorder (655018073) Bipolar 1 disorder (F31.9) Active confirmed Plan Of Treatment Pending Test Test Name Order Date COMPLETE BLOOD COUNT (CBC) *[id number] 2023 Insurance Providers Payer Name Payer Address Payer Phone Subscriber Number Group Number Insured Name Patient Relationship to Insured Coverage Start Date Coverage End Date [employer] [place] [address] [place], [place] [id number] GENE STARKEY Self - patient is the insured Medicaid [place] [address] [place] [address] [id number] GENE STARKEY Self - patient is the insured
--- NOTE | 2025-06-27 17:09 | PC.NURSE ---
PATIENT REFUSED VITALS FOR ENTIRETY OF VISIT
== END 2025-06-27 17:10 | disposition home or self-care (01) ==
PROVIDERS: Emergency Provider Emergency Medicine; PCP Student in an Organized Health Care Education/Training Program
DX: F31.9 Bipolar disorder, unspecified (principal); R45.1 Restlessness and agitation
CPT/HCPCS: 99285